=== PATIENT | female | born 1955 | race Caucasian/White ===

== ENCOUNTER → 2016-07-19 | Outpatient (CLI) | payer BC, MEDICARE ==
--- NOTE | 2016-07-19 11:01 | MM ---
Reason for exam: clinical finding. Last mammogram was performed 3 years and 3 months ago. History: Patient is postmenopausal and has history of other cancer at age 57. Family history of breast cancer in grandmother. Benign excisional biopsy of the right breast. Indicated problem(s): non-bloody discharge in the right breast. Physical Findings: Nurse did not find any significant physical abnormalities on exam. MG 3D Diag Mammo W/Cad PRITI Bilateral CC and MLO view(s) were taken. ML and spot compression MLO view(s) were taken of the right breast. Prior study comparison: April 08, 2013, bilateral digital screening mammo w/CAD. The breast tissue is heterogeneously dense. This may lower the sensitivity of mammography. Asymmetric density subareolar right breast on MLO does not persist on additional views. No significant new findings when compared with previous films. These results were verbally communicated with the patient and result sheet given to the patient on 07/19/16. ASSESSMENT: Incomplete: need additional imaging evaluation, BI-RAD 0 RECOMMENDATION: Ultrasound of the right breast. (subareolar)
--- NOTE | 2016-07-19 11:03 | USB ---
Reason for exam: additional evaluation requested from abnormal screening. History: Patient is postmenopausal and has history of other cancer at age 57. Family history of breast cancer in grandmother. Benign excisional biopsy of the right breast. US Breast Limited RT Right breast ultrasound s nadine of the subareolar region demonstrates a 0.46 x 0.24 x 0.52cm hypoechoic lesion at 10 o'clock, suspect a mildly complicated cyst. Can be reassessed in 6 months. These results were verbally communicated with the patient and result sheet given to the patient on 07/19/16. ASSESSMENT: Probably benign, BI-RAD 3 RECOMMENDATION: Ultrasound of the right breast in 6 months. (targeted 10 o'clock) MTDD
--- NOTE | 2016-07-19 14:47 | US ---
EXAMINATION TYPE: US pelvis complete transvag DATE OF EXAM: 07/19/2016 11:48 AM COMPARISON: NONE CLINICAL HISTORY: 61-year-old female with right pelvic pain Date of LMP: 2002 TECHNIQUE: Multiple transabdominal sonographic images of the pelvis were obtained. Transvaginal scann ing was medically necessary to better evaluate the anatomy. FINDINGS: Uterus: Anteverted measuring 8.0 x 3.8 x 5.4cm. Within the anterior left uterine body, there is a 2. 4 x 2.6 x 2.5 cm rounded heterogeneous structure of uncertain etiology, possible focal fibroid. Endometrial Stripe: 0.9cm, thickened for a postmenopausal female. Small amount of fluid is seen along the uterine cavity. Right Ovary: unable to visualize Left Ovary: unable to visualize No evident adnexal abnormality or cul-de-sac free fluid. IMPRESSION: 1. Abnormal thickening of the endometrium for a postmenopausal female along with some fluid in the ut erine cavity. Findings could represent endometrial polyp or carcinoma. Further clinical workup as ind icated. 2. A 2.6 cm rounded heterogeneous structure along the left anterior uterine body could represent a fo zayra fibroid. If further imaging evaluation is desired, consider female pelvic MRI. 3. Unable to visualize either ovary.
== END | disposition home or self-care (01) ==
LOC: RADMAMWWP 09:05
PROVIDERS: ATTEND Family Medicine
DX: R93.8 Abnormal findings on diagnostic imaging of other specified body structures (principal); R92.2 Inconclusive mammogram; R10.2 Pelvic and perineal pain; N64.52 Nipple discharge; R92.8 Other abnormal and inconclusive findings on diagnostic imaging of breast
CPT/HCPCS: 76856; 76830; 76642; G0204; G0279

== ENCOUNTER → 2020-11-15 | Outpatient (CLI) | payer MEDICARE ==
--- NOTE | 2020-11-15 13:14 | MM ---
Reason for exam: additional evaluation requested from prior study. Last mammogram was performed 4 years and 4 months ago. History: Patient is postmenopausal and has history of other cancer at age 57. Family history of breast cancer in grandmother. Benign excisional biopsy of the right breast. Took hormonal contraceptives for 1 year beginning at age 21. Physical Findings: Nurse did not find any significant physical abnormalities on exam. MG 3D Diag Mammo W/Cad PRITI Bilateral CC and MLO view(s) were taken. Prior study comparison: July 19, 2016, bilateral MG 3d diag mammo w/cad PRITI. April 08, 2013, bilateral digital screening mammo w/CAD. The breast tissue is heterogeneously dense. This may lower the sensitivity of mammography. Finding #1: There is a 12 mm oval mass in the upper outer quadrant of the right breast. Finding #2: There are typically benign calcifications in both breasts. These results were verbally communicated with the patient and result sheet given to the patient on 11/15/20. ASSESSMENT: Incomplete: need additional imaging evaluation, BI-RAD 0 RECOMMENDATION: Ultrasound of both breasts.
--- NOTE | 2020-11-15 13:17 | USB ---
Reason for exam: additional evaluation requested from abnormal screening. History: Patient is postmenopausal and has history of other cancer at age 57. Family history of breast cancer in grandmother. Benign excisional biopsy of the right breast. Took hormonal contraceptives for 1 year beginning at age 21. US Breast BILAT Technologist: Sade Bonds Right complete breast ultrasound includes all four quadrants, the retroareolar region and axilla. Finding demonstrates a 0.7 x 0.8 x 0.5cm oval, cystic cluster with debris at 12 o'clock. Left complete breast ultrasound includes all four quadrants, the retroareolar region and axilla. Finding demonstrates a 0.3 x 0.3 x 0.3cm cystic lesion at 6 o'clock and a 0.4 x 0.4 x 0.3cm cystic lesion at 1 o'clock. These results were verbally communicated with the patient and result sheet given to the patient on 11/15/20. ASSESSMENT: Suspicious, BI-RAD 4 RECOMMENDATION: Surgical consultation and ultrasound core biopsy of the right breast. Called Dr. Mejia's office with mammographic findings and has scheduled an appointment for the patient for 11/17/20 at 11:[address] Nathan. Biopsy scheduled for 11/30/20 at 1:00. PRELIMINARY REPORT CALLED AND FAXED TO DR. NATHAN ON 11/15/20.
== END | disposition home or self-care (01) ==
LOC: RADMAMWWP 10:43
PROVIDERS: ATTEND Family Medicine
DX: R92.1 Mammographic calcification found on diagnostic imaging of breast (principal); N63.11 Unspecified lump in the right breast, upper outer quadrant; N60.01 Solitary cyst of right breast; N60.02 Solitary cyst of left breast; Z78.0 Asymptomatic menopausal state; Z80.3 Family history of malignant neoplasm of breast
CPT/HCPCS: 77066; 76641; G0279; 77062

== ENCOUNTER → 2020-11-17 | Outpatient (CLI) | payer MEDICARE ==
[2020-11-17 11:03] VITALS: BP 162/95; PULSE 89; RESP 18; TEMP 97.5
--- NOTE | 2020-11-17 11:42 | P.GSHP ---
History of Present Illness H&P Date: 11/17/20 Chief Complaint: Radiographic abnormality right breast Fawn is a 65 year old white female seen in consultation for Dr. Mejia regarding an ultrasound abnormality in the right breast. She underwent a bilateral mammogram on 11-15-20 after which bilateral ultrasound was recommended. On mammogram a 12 mm oval mass was noted in the upper outer quadrant of the right breast. On ultrasound the patient was noted to have: Right breast: 0.7 x 0.8 cm the cystic cluster at 12:00 Left breast: 2 cystic lesions one at 6:00 and one at 1:00. The films were reviewed with Dr. Armijo from radiology and it was recommended that a right breast ultrasound core biopsy be performed. Patient had not had a mammogram for approximately 4 years. She does not feel any lumps masses or nodules of concern in either breast. She does complain of bilateral green nipple discharge. She has been having the discharge for approximately 6 months. She was told she had an infection and she has been on an antibiotic with respect to this. She has been on ciprofloxin for 10 days. The discharge is spontaneous. She has never noticed any blood in the discharge. She has not had any fever or chills. She was complaining of some intermittent sharp discomfort in the left breast in the upper outer quadrant area. The pain is several times a week. It last for several minutes when it comes. It spreads to the anterior portion of the breast. She has had a duct exploration of the right breast in the remote past. This was related to nipple discharge. This discharge stopped at that time but has now started again. She also had 2 lumps removed under her right arm which were also benign. She has not had any surgery on the left breast. Caffiene: 6 pots of coffee per day/ decreased now to 2-3 cups per day Nicotine:stopped 2 1/2 years ago, used to smoke 2 1/2 PPD, she is not exposed to second hand smoke chocolate: occasional hormones: none BCP: 1 year 40 years ago Family history: Paternal grandmother: Breast cancer brother: Brain cancer sister: colon cancer History: Menarche: 15 G7 6 children; 2 miscarriages; 1 set of twins; age at first : 21, breast fed: yes menopause: 45 BCP: 1 year, hormones: estrogen: 1 year Surgical History: Colon resection for mass this was not cancer, she had a second procedure the second day but is not certain exactly what was done; [place] laproscopic evaluation for endometriosis appendectomy gallbladder bilateral feet; RSD after shopping cart broke on her legs arm torn rotator cuff Spinal stimulator tonsillectomy Medical history: RSD (regional sympathetic dystrophy) HTN [place] chest pain/angina COPD Social History: nicotine: stopped 2 1/2 years ago alcohol: none drugs: none - Constitutional Constitutional: Denies chills, Denies fever - EENT Comment: needs new glasses Eyes: denies blurred vision, denies pain Ears: bilateral: decreased hearing (hearing aids) Ears, nose, mouth and throat: Denies headache, Denies sore throat - Breasts Breasts: bilateral: as per HPI - Cardiovascular Comment: [place] 2012; stints 1 Cardiovascular: Denies chest pain, Denies shortness of breath - Respiratory Comment: former smoker - Gastrointestinal Comment: abdominal bloating and pain/diarrhea Gastrointestinal: Denies abdominal pain, Denies diarrhea, Denies nausea, Denies vomiting - Genitourinary (Female) Genitourinary: Denies dysuria, Denies hematuria - Menstruation Menstruation: Reports postmenopausal - Musculoskeletal Comment: RSD - Integumentary Comment: vaginal itch Integumentary: Denies pruritus, Denies rash - Neurological Comment: RSD - Psychiatric Psychiatric: Reports anxiety, Reports depression - Endocrine Endocrine: Reports weight change - Hematologic/Lymphatic Comment: none - Allergic/Immunologic Allergic/Immunologic: Reports seasonal allergies Past Medical History Past Medical History: Chest Pain / Angina, Hyperlipidemia, Hypertension, Myocardial Infarction ([place]) Additional Past Medical History / Comment(s): RSD, RAYNAUDS Last Myocardial Infarction Date:: 08/2012 History of Any Multi-Drug Resistant Organisms: None Reported Past Surgical History: Appendectomy, Bowel Resection, Breast Surgery, Heart Catheterization With Stent, Orthopedic Surgery, Tonsillectomy, Tubal Ligation Additional Past Surgical History / Comment(s): spinal stimulator Past Anesthesia/Blood Transfusion Reactions: No Reported Reaction Date of Last Stent Placement:: 08/2012 Past Psychological History: Anxiety, Depression Past Alcohol Use History: Rare Past Drug Use History: None Reported - Past Family History Mother Family Medical History: Myocardial Infarction ([place]) Father Family Medical History: Myocardial Infarction ([place]) Sister(s) Family Medical History: Myocardial Infarction ([place]) Additional Family Medical History / Comment(s): sister from [place] Medications and Allergies Home Medications Medication Instructions Recorded Confirmed Type FLUoxetine HCL [PROzac] 20 mg PO BID 05/09/14 12/19/15 History QUEtiapine [SEROquel] 100 mg PO HS 05/09/14 12/19/15 History diazePAM [Valium] 10 mg PO TID 05/09/14 12/19/15 History Amitriptyline HCl [Elavil] 50 mg PO HS 05/10/14 12/19/15 History Gabapentin [Neurontin] 300 mg PO TID 05/10/14 12/19/15 History Nitroglycerin Sl Tabs [Nitrostat] 0.4 mg SUBLINGUAL Q5M PRN 05/10/14 12/19/15 History rOPINIRole HCL [Requip] 1 mg PO HS 05/10/14 12/19/15 History Ergocalciferol [Vitamin D2] 50,000 unit PO FR 09/17/15 12/19/15 History Montelukast [Singulair] 10 mg PO DAILY 09/17/15 12/19/15 History Aspirin EC [Ecotrin] 325 mg PO DAILY 12/19/15 12/19/15 History Atorvastatin [Lipitor] 40 mg PO HS 12/19/15 12/19/15 History Fluticasone/Salmeterol [Advair 1 puff INHALATION RT-BID 12/19/15 12/19/15 History 250-50 Diskus] Metoprolol Succinate [Toprol XL] 200 mg PO DAILY 12/19/15 12/19/15 History Omeprazole 20 mg PO DAILY 12/19/15 12/19/15 History cloNIDine HCL [Catapres] 0.2 mg PO DAILY 12/19/15 12/19/15 History predniSONE [Deltasone] 20 mg PO BID #10 tab 12/19/15 Rx Allergies Allergy/AdvReac Type Severity Reaction Status Date / Time propranolol HCl Allergy [facility]/Hives [facility] [facility] - Exam BMI 28 - General no distress - Eyes normal ocular movement - ENT normal pinna, normal nares - Neck no masses, trachea midline - Respiratory normal expansion, normal respiratory effort, clear to auscultation - Cardiovascular Rhythm: regular Heart Sounds: normal: S1, S2 - Abdomen Abdomen: soft, non tender, no guarding, no rigid, no rebound - Integumentary normal turgor - Neurologic no disoriented, no combative - Musculoskeletal normal gait - Psychiatric oriented to time, oriented to place, memory intact Breast exam: BRA: 36C inspection: grade 3 ptosis bilateral palpation: right breast: Multi-positional exam fibrocystic changes, no dominant masses or nodules of concern, nipple discharge green in nature guaiac negative Right axilla: No adenopathy of concern Left breast: Multi-positional exam fibrocystic changes, no dominant masses or nodules of concern, nipple discharge, guaiac positive Left axilla: No adenopathy of concern Results Radiographs reviewed with Dr. Armijo from radiology/lesion 12 o'clock position right breast seen on ultrasound for which ultrasound-guided core biopsy recommended Assessment and Plan Assessment: Impression: RSD (regional sympathetic dystrophy) HTN [place] chest pain/angina COPD Bilateral nipple discharge/right guaiac-negative left guaiac positive Ultrasound abnormality right breast 12:00 Fibrocystic breast changes Plan: 1. Ultrasound core biopsy right breast/ than follow up 2. Duct exploration left breast secondary to guaiac positive discharge 3. Patient encouraged to stop all caffeine 4. Patient noted to have stopped smoking no nicotine exposure at this time 5. pre-op clearance with Dr. Mejia in case we need to do a duct exploration Risks and benefits of the ultrasound core biopsy discussed with the patient and her . They understand and wish to proceed. Additionally the patient is noted to have bloody nipple discharge on the left at this time she will have this rechecked at her next visit. Cc: Dr. Dr. Mejia
== END ==
LOC: WWCWWP 10:52
PROVIDERS: ATTEND Surgery
DX: N60.12 Diffuse cystic mastopathy of left breast (principal); N60.11 Diffuse cystic mastopathy of right breast; G90.50 Complex regional pain syndrome I, unspecified; I10 Essential (primary) hypertension; I25.2 Old myocardial infarction; R07.9 Chest pain, unspecified; J44.9 Chronic obstructive pulmonary disease, unspecified; N64.52 Nipple discharge; E78.5 Hyperlipidemia, unspecified; F32.9 Major depressive disorder, single episode, unspecified; F41.9 Anxiety disorder, unspecified; Z79.82 Long term (current) use of aspirin; Z87.891 Personal history of nicotine dependence; Z79.51 Long term (current) use of inhaled steroids; Z79.52 Long term (current) use of systemic steroids; Z79.899 Other long term (current) drug therapy; Z88.8 Allergy status to other drugs, medicaments and biological substances

== ENCOUNTER → 2020-11-24 | Outpatient (CLI) | payer MEDICARE ==
--- NOTE | 2020-11-24 08:24 | US ---
EXAMINATION TYPE: US abdomen complete DATE OF EXAM: 11/24/2020 COMPARISON: NONE CLINICAL HISTORY: R10.9 abdominal pain, R10.2 Pelvic Pain. Right pelvic pain x 5 months, history of c holecystectomy EXAM MEASUREMENTS: Liver Length: 17.7 cm CBD: 0.8 cm Spleen: 12.2 cm Right Kidney: 9.6 x 3.8 x 4.8 cm Left Kidney: 9.0 x 4.9 x 5.0 cm Pancreas: visualized portions wnl, the head and tail is limited by overlying midline bowel gas Liver: measures in upper limits of normal Gallbladder: surgically absent Evidence for sonographic Cruz's sign: no CBD: wnl Spleen: visualized portions wnl, limited by overlying bowel gas Right Kidney: wnl Left Kidney: wnl Upper IVC: wnl Abd Aorta: wnl IMPRESSION: 1. Status post cholecystectomy. Common duct is 8 mm, within normal limits for postcholecystectomy pat ient. 2. No hydronephrosis or shadowing renal calculi. 3. The pancreas is not entirely visualized due to overlying bowel gas obscuring the head and tail.
--- NOTE | 2020-11-24 08:47 | US ---
EXAMINATION TYPE: US pelvic complete DATE OF EXAM: 11/24/2020 COMPARISON: US 2017 07/19/2016 CLINICAL HISTORY: R10.9 abdominal pain, R10.2 Pelvic Pain. Right pelvic pain x 5 months, post menopau alexandre, 6, para 4, miscarriage 2 TECHNIQUE: . Transabdominal sonographic images of the pelvis were acquired. Transvaginal sonographi c images were medically necessary to better assess the following anatomy: ovaries and endometrium Date of LMP: 2002 EXAM MEASUREMENTS: Uterus: 6.8 x 4.1 x 4.7 cm Endometrial Stripe: 0.5 cm 1. Uterus: heterogeneous with 2.7 x 2.3 x 2.7cm hypoechoic lesion within the left uterus seen sugge stive of a leiomyoma 2. Endometrium: fluid within endo, 0.6cm hyperechoic area seen within endo 3. Right Ovary: not seen 4. Left Ovary: not seen 5. Bilateral Adnexa: wnl 6. Posterior cul-de-sac: wnl IMPRESSION: 1. In this postmenopausal female, the endometrial stripe measures up to 5 mm, which is mildly thicken ed for a postmenopausal female. Differential diagnosis includes endometrial cancer, endometrial hyper plasia, or endometrial polyp. There is a 6.4 mm hyperechoic area seen within the endometrium. Gynecol ogic evaluation is recommended. 2. The ovaries are not visualized which may be due to atrophy and postmenopausal state. 3. 2.7 cm hypoechoic lesion within the left uterus is most suggestive of a leiomyoma.
== END | disposition home or self-care (01) ==
LOC: RADUSWWP 06:55
PROVIDERS: ATTEND Family Medicine
DX: R93.89 Abnormal findings on diagnostic imaging of other specified body structures (principal); Z90.49 Acquired absence of other specified parts of digestive tract; Z78.0 Asymptomatic menopausal state
CPT/HCPCS: 76700; 76830; 76856

== ENCOUNTER → 2020-11-30 | Day surgery (SDC) | payer MEDICARE ==
[2020-11-30 12:02] VITALS: BP 143/82; PULSE 77; RESP 16; TEMP 98.6
--- NOTE | 2020-11-30 14:44 | USB ---
Study: US discontinued breast bx RT History: 65-year-old female who is here today for a right breast biopsy. Comparison: 11/15/2020 Findings: Directed sonography of the right breast was performed. At the right breast at 12:00, zone A there is a complex cystic structure with septations or area of fibrocystic change measuring 0.8 x 0.7 x 0.4 cm . This is probably benign. The biopsy today was canceled for this probably benign finding. A 6 month follow-up right diagnostic mammogram and breast ultrasound are recommended. Impression: Right breast: Complex cystic structure or area of fibrocystic change measuring 8 mm is stable since p rior exam from 11/15/2020. This is probably benign. Ultrasound-guided right breast biopsy was canceled . A 6 month follow-up right diagnostic mammogram and ultrasound are recommended. BI-RADS 3: Probably benign Recommend sonographic study of the right breast in 6 months.
== END ==
LOC: RADUSWWP 11:52
PROVIDERS: ATTEND Surgery
DX: R92.8 Other abnormal and inconclusive findings on diagnostic imaging of breast (principal); Z88.8 Allergy status to other drugs, medicaments and biological substances

== ENCOUNTER → 2020-12-08 | Outpatient (CLI) | payer MEDICARE ==
[2020-12-08 08:56] VITALS: BP 143/84; PULSE 90; RESP 16; TEMP 97.7
--- NOTE | 2020-12-08 09:20 | P.PN ---
Subjective Progress Note Date: 12/08/20 Principal diagnosis: Canceled ultrasound core biopsy right breast/nipple discharge left decreased and guaiac-negative at today's evaluation Fawn is a 65 year old white female seen in consultation for Dr. Mejia regarding an ultrasound abnormality in the right breast. She underwent a bilateral mammogram on 11-15-20 after which bilateral ultrasound was recommended. On mammogram a 12 mm oval mass was noted in the upper outer quadrant of the right breast. On ultrasound the patient was noted to have: Right breast: 0.7 x 0.8 cm the cystic cluster at 12:00 Left breast: 2 cystic lesions one at 6:00 and one at 1:00. The films were reviewed with Dr. Armijo from radiology and it was recommended that a right breast ultrasound core biopsy be performed. Patient had not had a mammogram for approximately 4 years. She does not feel any lumps masses or nodules of concern in either breast. She does complain of bilateral green nipple discharge. She has been having the discharge for approximately 6 months. She was told she had an infection and she has been on an antibiotic with respect to this. She has been on ciprofloxin for 10 days. The discharge is spontaneous. She has never noticed any blood in the discharge. She has not had any fever or chills. She was complaining of some intermittent sharp discomfort in the left breast in the upper outer quadrant area. The pain is several times a week. It last for several minutes when it comes. It spreads to the anterior portion of the breast. She has had a duct exploration of the right breast in the remote past. This was related to nipple discharge. This discharge stopped at that time but has now started again. She also had 2 lumps removed under her right arm which were also benign. She has not had any surgery on the left breast. She is not having any right nipple discharge. The discharge at this time is from the left breast, and it was guaiac positive on her last examination. She had an attempt at an ultrasound-guided biopsy of the right breast on . The lesion seen was felt to be benign and the procedure was canceled by Dr. Lopez. It was recommended that she have repeat right breast ultrasound in May. Left breast discharge has been happening for about 6 months, it is spontaneous in nature. It was green in nature, in her bra it was noted to have several colors, no sarabjit blood. It was occurring from multiple ducts. On today's evaluation it is guaiac negative. The patient is not having any right nipple discharge at this time. Caffiene: 6 pots of coffee per day/ decreased now to 2-3 cups per day Nicotine:stopped 2 1/2 years ago, used to smoke 2 1/2 PPD, she is not exposed to second hand smoke chocolate: occasional hormones: none BCP: 1 year 40 years ago Family history: Paternal grandmother: Breast cancer brother: Brain cancer sister: colon cancer History: Menarche: 15 G7 6 children; 2 miscarriages; 1 set of twins; age at first : 21, breast fed: yes menopause: 45 BCP: 1 year, hormones: estrogen: 1 year Surgical History: Colon resection for mass this was not cancer, she had a second procedure the second day but is not certain exactly what was done; [place] laproscopic evaluation for endometriosis appendectomy gallbladder bilateral feet; RSD after shopping cart broke on her legs arm torn rotator cuff Spinal stimulator tonsillectomy Medical history: RSD (regional sympathetic dystrophy) HTN [place] chest pain/angina COPD Social History: nicotine: stopped 2 1/2 years ago alcohol: none drugs: none - Constitutional Constitutional: Denies chills, Denies fever - EENT Comment: needs new glasses Eyes: denies blurred vision, denies pain Ears: bilateral: decreased hearing (hearing aids) Ears, nose, mouth and throat: Denies headache, Denies sore throat - Breasts Breasts: bilateral: as per HPI - Cardiovascular Comment: [place] 2012; stints 1 Cardiovascular: Denies chest pain, Denies shortness of breath - Respiratory Comment: former smoker - Gastrointestinal Comment: abdominal bloating and pain/diarrhea Gastrointestinal: Denies abdominal pain, Denies diarrhea, Denies nausea, Denies vomiting - Genitourinary (Female) Genitourinary: Denies dysuria, Denies hematuria - Menstruation Menstruation: Reports postmenopausal - Musculoskeletal Comment: RSD - Integumentary Comment: vaginal itch Integumentary: Denies pruritus, Denies rash - Neurological Comment: RSD - Psychiatric Psychiatric: Reports anxiety, Reports depression - Endocrine Endocrine: Reports weight change - Hematologic/Lymphatic Comment: none - Allergic/Immunologic Allergic/Immunologic: Reports seasonal allergies Objective - Vital Signs Vital signs: Vital Signs Temp 97.7 F 12/08/20 08:54 Pulse 90 12/08/20 08:54 Resp 16 12/08/20 08:54 BP 143/84 12/08/20 08:54 Pulse Ox 98 12/08/20 08:54 Intake & Output 12/07/20 12/08/20 12/08/20 18:59 06:59 18:59 Weight 75.75 kg - Additional findings Additional findings: Today's evaluation was limited to the left breast. Examination reveals green colored discharge from multiple ducts at the nipple. These are guaiac negative on today's examination. Prior no dominant masses or nodules of concern had been noted in the breast. No left axillary adenopathy of concern had been noted. Assessment and Plan Assessment: Impression: 1. Fibrocystic breast disease bilateral 2. Patient has decreased her caffeine intake 3. Discharge has stopped from the right nipple complex, appears to still be occurring on the left but appears to be consistent with fibrocystic changes is green in nature and coming from multiple ducts no radiographic findings were noted to describe this and nothing on physical exam it is guaiac negative on today's evaluation Plan: 1. After discussion with the patient and her we are going to do conservative surveillance, if she notes any red blood she is going to call us immediately otherwise I'll see her again in 1 month 2. Repeat right breast ultrasound in 6 months with physician exam at that time Plan: Dr. Mejia Stable chronic illness: The cystic breast disease, left nipple discharge [place] ultrasound [place] [id number] Ordering of ultrasound in 6 months Patient is going to have close surveillance regarding the nipple discharge and if this becomes bloody or she is at all concerned we will see her sooner.
== END ==
LOC: WWCWWP 08:46
PROVIDERS: ATTEND Surgery
DX: N60.11 Diffuse cystic mastopathy of right breast (principal); N60.12 Diffuse cystic mastopathy of left breast; I10 Essential (primary) hypertension; J44.9 Chronic obstructive pulmonary disease, unspecified; I25.2 Old myocardial infarction; Z87.891 Personal history of nicotine dependence; Z88.8 Allergy status to other drugs, medicaments and biological substances

== ENCOUNTER → 2021-01-06 | Outpatient (CLI) | payer MEDICARE ==
[2021-01-06 15:49] VITALS: BP 151/84; PULSE 81; RESP 18; TEMP 98
--- NOTE | 2021-01-06 16:15 | P.PN ---
Subjective Progress Note Date: 01/06/21 Principal diagnosis: Left breast pain/nipple discharge Canceled ultrasound core biopsy right breast/nipple discharge left decreased and guaiac-negative at today's evaluation Fawn is a 65 year old white female seen in consultation for Dr. Mejia regarding an ultrasound abnormality in the right breast. She underwent a bilateral mammogram on 11-15-20 after which bilateral ultrasound was recommended. On mammogram a 12 mm oval mass was noted in the upper outer qu adrant of the right breast. On ultrasound the patient was noted to have: Right breast: 0.7 x 0.8 cm the cystic cluster at 12:00 Left breast: 2 cystic lesions one at 6:00 and one at 1:00. The films were reviewed with Dr. Armijo from radiology and it was recommended that a right breast ultrasound core biopsy be performed. Patient had not had a mammogram for approximately 4 years. She does not feel any lumps masses or nodules of concern in either breast. She does complain of bilateral green nipple discharge. She has been having the discharge for approximately 6 months. She was told she had an infection and she has been on an antibiotic with respect to this. She has been on ciprofloxin for 10 days. The discharge is spontaneous. She has never noticed any blood in the discharge. She has not had any fever or chills. She was complaining of some intermittent sharp discomfort in the left breast in the upper outer quadrant area. The pain is several times a week. It last for several minutes when it comes. It spreads to the anterior portion of the breast. She has had a duct exploration of the right breast in the remote past. This was related to nipple discharge. This discharge stopped at that time but has now started again. She also had 2 lumps removed under her right arm which were also benign. She has not had any surgery on the left breast. She is not having any right nipple discharge. The discharge at this time is from the left breast, and it was guaiac positive on her last examination. She had an attempt at an ultrasound-guided biopsy of the right breast on . The lesion seen was felt to be benign and the procedure was canceled by Dr. Lopez. It was recommended that she have repeat right breast ultrasound in May. Left breast discharge has been happening for about 6 months, it is spontaneous in nature. It was green in nature, in her bra it was noted to have several colors, no sarabjit blood. It was occurring from multiple ducts. On today's evaluation it is guaiac negative. The patient is not having any right nipple discharge at this time. The left nipple discharge is spontaneous and every night she sees something on her bra. She also complains of pain in the lateral upper outer quadrant of the left breast. This originates under the axilla and spreads into the breast. It occurs at least once a day. It is worse with any pressure. On a scale of 1-10 it is a 4. She has not noted any new lumps masses or nodules in either breast. Caffiene: 6 pots of coffee per day/ decreased now to 2-3 cups per day Nicotine:stopped 2 1/2 years ago, used to smoke 2 1/2 PPD, she is not exposed to second hand smoke chocolate: occasional hormones: none BCP: 1 year 40 years ago Family history: Paternal grandmother: Breast cancer brother: Brain cancer sister: colon cancer History: Menarche: 15 G7 6 children; 2 miscarriages; 1 set of twins; age at first : 21, breast fed: yes menopause: 45 BCP: 1 year, hormones: estrogen: 1 year Surgical History: Colon resection for mass this was not cancer, she had a second procedure the second day but is not certain exactly what was done; [place] laproscopic evaluation for endometriosis appendectomy gallbladder bilateral feet; RSD after shopping cart broke on her legs arm torn rotator cuff Spinal stimulator tonsillectomy Medical history: RSD (regional sympathetic dystrophy) HTN [place] chest pain/angina COPD Social History: nicotine: stopped 2 1/2 years ago alcohol: none drugs: none - Constitutional Constitutional: Denies chills, Denies fever - EENT Comment: needs new glasses Eyes: denies blurred vision, denies pain Ears: bilateral: decreased hearing (hearing aids) Ears, nose, mouth and throat: Denies headache, Denies sore throat - Breasts Breasts: bilateral: as per HPI - Cardiovascular Comment: [place] 2013; stints 1 Cardiovascular: Denies chest pain, Denies shortness of breath - Respiratory Comment: former smoker - Gastrointestinal Comment: abdominal bloating and pain/diarrhea Gastrointestinal: Denies abdominal pain, Denies diarrhea, Denies nausea, Denies vomiting - Genitourinary (Female) Genitourinary: Denies dysuria, Denies hematuria - Menstruation Menstruation: Reports postmenopausal - Musculoskeletal Comment: RSD - Integumentary Comment: vaginal itch Integumentary: Denies pruritus, Denies rash - Neurological Comment: RSD - Psychiatric Psychiatric: Reports anxiety, Reports depression - Endocrine Endocrine: Reports weight change - Hematologic/Lymphatic Comment: none - Allergic/Immunologic Allergic/Immunologic: Reports seasonal allergies Objective - Vital Signs Vital signs: Vital Signs Temp 98.0 F 01/06/21 15:47 Pulse 81 01/06/21 15:47 Resp 18 01/06/21 15:47 BP 151/84 01/06/21 15:47 Pulse Ox 97 01/06/21 15:47 Intake & Output 01/05/21 01/06/21 01/06/21 18:59 06:59 18:59 Weight 72.575 kg - Exam BMI 25.8 - Constitutional General appearance: Present: average body habitus - EENT Eyes: Present: EOMI ENT: Present: hearing grossly normal - Neck Neck: Present: normal ROM - Respiratory Respiratory: bilateral: CTA - Cardiovascular Rhythm: regular Heart sounds: normal: S1, S2 - Gastrointestinal General gastrointestinal: Present: soft - Integumentary Integumentary: Present: normal turgor - Musculoskeletal Musculoskeletal: Present: gait normal - Psychiatric Psychiatric: Present: A&O x's 3, appropriate affect, intact judgment & insight - Additional findings Additional findings: Breast exam: BRA: 36C Inspection: Bilateral grade 2 ptosis Palpation: Right breast: Multiple positional exam fibrocystic changes, no dominant masses or nodules of concern Right axilla: No adenopathy of concern Left breast: Multiple positional exam no dominant masses or nodules of concern in the breast, examination of the axilla reveals an area of point tenderness in the axilla was some slight nodularity over this Left axilla: Area of point tenderness with some nodularity does not appear to be a lymph node appears to be more consistent with axillary breast tissue The patient is able to elicit nipple discharge on the left and this is tested and is guaiac-negative Assessment and Plan Assessment: Impression: RSD (regional sympathetic dystrophy) pain stimulator HTN [place] chest pain/angina COPD left breast axillary pain fibrocystic breast pain nothing at this time to warrant biopsy cannot do MRI after talking with patient because of pain stimulator Plan: 1. Ultrasound of trigger point area in the left axilla 2. Question whether this may be related to her regional synthetic dystrophy/ appointment with pain DrAram 3. Nipple discharge is guaiac negative on today's evaluation and only produced with massage of the breast 4. folow up after ultrasound of the axilla 5. Patient again encouraged to stop caffeine intake she has stopped smoking several years ago/ will use [place] oil CC: Dr. Moon
== END ==
LOC: WWCWWP 14:52
PROVIDERS: ATTEND Surgery
DX: N64.4 Mastodynia (principal); G90.50 Complex regional pain syndrome I, unspecified; I10 Essential (primary) hypertension; F17.210 Nicotine dependence, cigarettes, uncomplicated; I25.2 Old myocardial infarction; I20.9 Angina pectoris, unspecified; J44.9 Chronic obstructive pulmonary disease, unspecified; Z88.8 Allergy status to other drugs, medicaments and biological substances; Z79.899 Other long term (current) drug therapy

== ENCOUNTER → 2021-02-13 | Outpatient (CLI) | payer MEDICARE ==
--- NOTE | 2021-02-14 15:03 | USB ---
Reason for exam: clinical finding. History: Patient is postmenopausal and has history of other cancer at age 57. Family history of breast cancer in paternal grandmother at age 56. US discontinued breast bx RT of the right breast, November 30, 2020. Benign excisional biopsy of the right breast. Took hormonal contraceptives for 1 year beginning at age 21. Indicated problem(s): pain in the left breast. Physical Findings: Nurse Summary: Patient complains of intermittent pain left axilla x 3 months, shooting pain into lateral half of breast (nurse TM). US Breast LT Left complete breast ultrasound includes all four quadrants, the retroareolar region and axilla. Finding demonstrates a 4 x 3 x 4mm oval, cystic, stable lesion at 1 o'clock. These results were verbally communicated with the patient and result sheet given to the patient on 02/13/21. ASSESSMENT: Benign, BI-RAD 2 RECOMMENDATION: Routine screening mammogram of both breasts in 9 months. Back on schedule for November 2021. Manage on a clinical basis with regard to pain, nipple discharge.
== END | disposition home or self-care (01) ==
LOC: RADUSWWP 09:03
PROVIDERS: ATTEND Surgery
DX: N64.4 Mastodynia (principal); Z85.3 Personal history of malignant neoplasm of breast

== ENCOUNTER → 2021-03-03 | Outpatient (CLI) | payer MEDICARE ==
[2021-03-03 11:42] VITALS: BP 138/90; PULSE 90; RESP 18; TEMP 97.9
--- NOTE | 2021-03-03 12:14 | P.PN ---
Subjective Progress Note Date: 03/03/21 Principal diagnosis: BMI 25.4 Fawn is a 66-year-old white female who was initially seen related to a questionable ultrasound abnormality in her right breast. An ultrasound core biopsy was scheduled but at the time of the procedure was canceled. The patient at that time was complaining of some intermittent sharp discomfort in her left breast in the upper outer quadrant area. The patient states that she has pain which occurs several times a day. It is only in the left breast but it seems to be in the upper outer quadrant region. She had been drinking up proximally 6 pots of coffee per day but is now decreased to several cups per day. Her last bilateral mammogram was on following that she had bilateral ultrasound performed. Ultrasound on the right breast lead to recommendation for biopsy which was canceled ultrasound on the left breast revealed a cystic lesion at 6:00 and the cystic lesion at 1:00. The patient most recently has had a repeat left breast ultrasound done on 8920. This was felt to be benign BIRADS 2. This revealed a 4 x 3 mm oval cystic stable lesion at 1:00. She has not yet had a right breast ultrasound repeated after her discontinued biopsy which was on . Caffiene: 6 pots of coffee per day/ decreased now to 2-3 cups per day Nicotine:stopped about 3 years ago, used to smoke 2 1/2 PPD, she is not exposed to second hand smoke chocolate: occasional hormones: none BCP: 1 year 40 years ago Family history: Paternal grandmother: Breast cancer brother: Brain cancer sister: colon cancer History: Menarche: 15 G7 6 children; 2 miscarriages; 1 set of twins; age at first : 21, breast fed: yes menopause: 45 BCP: 1 year, hormones: estrogen: 1 year Surgical History: Colon resection for mass this was not cancer, she had a second procedure the second day but is not certain exactly what was done; [place] laproscopic evaluation for endometriosis appendectomy gallbladder bilateral feet; RSD after shopping cart broke on her legs arm torn rotator cuff Spinal stimulator tonsillectomy Medical history: RSD (regional sympathetic dystrophy) was recently increased on neurotin HTN [place] chest pain/angina COPD Social History: nicotine: stopped 2 1/2 years ago alcohol: none drugs: none - Constitutional Constitutional: Denies chills, Denies fever - EENT Comment: needs new glasses Eyes: denies blurred vision, denies pain Ears: bilateral: decreased hearing (hearing aids) Ears, nose, mouth and throat: Denies headache, Denies sore throat - Breasts Breasts: bilateral: as per HPI - Cardiovascular Comment: [place] 2012; stints 1 Cardiovascular: Denies chest pain, Denies shortness of breath - Respiratory Comment: former smoker - Gastrointestinal Comment: abdominal bloating and pain/diarrhea Gastrointestinal: Denies abdominal pain, Denies diarrhea, Denies nausea, Denies vomiting - Genitourinary (Female) Genitourinary: Denies dysuria, Denies hematuria - Menstruation Menstruation: Reports postmenopausal - Musculoskeletal Comment: RSD - Integumentary Comment: vaginal itch Integumentary: Denies pruritus, Denies rash - Neurological Comment: RSD - Psychiatric Psychiatric: Reports anxiety, Reports depression - Endocrine Endocrine: Reports weight change - Hematologic/Lymphatic Comment: none - Allergic/Immunologic Allergic/Immunologic: Reports seasonal allergies Objective - Vital Signs Vital signs: Vital Signs Temp 97.9 F 03/03/21 11:40 Pulse 90 03/03/21 11:40 Resp 18 03/03/21 11:40 BP 138/90 03/03/21 11:40 Pulse Ox 99 03/03/21 11:40 Intake & Output 03/02/21 03/03/21 03/03/21 18:59 06:59 18:59 Weight 72.575 kg - Constitutional Constitutional Comment(s): chronic breast pain - EENT Eyes: Present: EOMI ENT: Present: hearing grossly normal - Neck Neck: Present: normal ROM - Respiratory Respiratory: bilateral: CTA - Cardiovascular Heart sounds: normal: S1, S2 - Integumentary Integumentary: Present: normal turgor - Musculoskeletal Musculoskeletal Comment(s): drop foot - Psychiatric Psychiatric: Present: A&O x's 3, appropriate affect, intact judgment & insight - Additional findings Additional findings: breast exam: BRA: 36C inspection: Bilateral grade 2 ptosis Palpation: Right breast: Multiple positional exam fibrocystic changes no dominant masses or nodules of concern Right axilla: No adenopathy of concern Left breast: Multiple positional exam fibrocystic changes, no dominant masses or nodules of concern Left axilla: No adenopathy, however point tenderness at [place] to be present on the chest wall laterally in the axilla 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 Fibrocystic breast changes 2. Patient has modified lifestyle she is drinking minimal caffeine at this time have recommended that she stop all caffeine if possible 3. [place] oil 4. Patient's pain stimulator has stopped working and she is going to have those batteries changed, suspect patient may be related to RSD/chest wall/frozen shoulder left 5. Nothing in the breast which were more interventional biopsy at this time Plan: 1. Bilateral mammogram in 9 months with position exam at that time 2. Patient is going to have batteries change in her RSD pain stimulator device 3. follow with primary care regarding shoulder limited motion CC: Dr. Moon
== END ==
LOC: WWCWWP 11:25
PROVIDERS: ATTEND Surgery
DX: N60.12 Diffuse cystic mastopathy of left breast (principal); F15.90 Other stimulant use, unspecified, uncomplicated; L23.7 Allergic contact dermatitis due to plants, except food; I10 Essential (primary) hypertension; I25.2 Old myocardial infarction; J44.9 Chronic obstructive pulmonary disease, unspecified; Z79.899 Other long term (current) drug therapy; Z87.891 Personal history of nicotine dependence; Z88.8 Allergy status to other drugs, medicaments and biological substances

== ENCOUNTER 2021-08-06 17:02 | Observation (INO) | payer MEDICARE ==
[2021-08-06] MEDS ORDERED: SODIUM CHLORIDE 0.9% 1,000 ML IV STA (17:32)
[2021-08-06] MEDS ORDERED: ONDANSETRON 4 MG/2 ML VIAL IVP STA (17:32)
[2021-08-06] MEDS ORDERED: FAMOTIDINE 20 MG/2 ML VIAL IV STA (17:34)
--- NOTE | 2021-08-06 17:40 | ED ---
Nausea/Vomiting/Diarrhea HPI - General Chief complaint: Nausea/Vomiting/Diarrhea Stated complaint: N/V/D Time Seen by Provider: 08/06/21 17:20 Source: patient Mode of arrival: wheelchair Limitations: no limitations - History of Present Illness Initial comments: 66 year-old female patient presents to the emergency department for evaluation of vomiting and diarrhea. States symptoms started last night and have not improved. Unable to keep down food or fluids. Denies hematochezia, melena, or hematemesis. She states now she feels dizzy and has fallen multiple times. Denies use of blood thinners. States she did hit her head. Denies headache, blurred vision, or double vision. Denies chest pain or shortness of breath. States she is having pain to the right side of her abdomen. States he has had colon resection in the past and her surgeon is concerned she may have adhesions. She denies fever or chills. She is vaccinated with a booster for COVID. Has n ever had COVID. Patient denies any recent rash, cough, constipation, back pain, numbness, tingling, hematuria, dysuria, urinary urgency, urinary frequency, or any other complaints. - Related Data Home Medications Medication Instructions Recorded Confirmed Amitriptyline HCl [Elavil] 50 mg PO HS 05/10/14 08/06/21 Gabapentin [Neurontin] 300 mg PO TID 05/10/14 08/06/21 Ergocalciferol [Vitamin D2] 50,000 unit PO FR 09/17/15 08/06/21 Montelukast [Singulair] 10 mg PO HS 09/17/15 08/06/21 Omeprazole 20 mg PO DAILY 12/19/15 08/06/21 Diazepam [Valium] 5 mg PO DAILY PRN 11/18/20 08/06/21 Albuterol Inhaler [Ventolin Hfa 2 puff INHALATION RT-Q6H PRN 08/06/21 08/06/21 Inhaler] Budesonide/Glycopyr/Formoterol 1 puff INHALATION RT-DAILY 08/06/21 08/06/21 [Breztri Aerosphere Inhaler] Dicyclomine HCl 10 mg PO ACHS 08/06/21 08/06/21 Fluticasone/Vilanterol [Breo 1 puff INHALATION RT-DAILY 08/06/21 08/06/21 Ellipta 200-25 Mcg Inhaler] Hydrochlorothiazide 12.5mg Tab 12.5 mg PO DAILY 08/06/21 08/06/21 Lisinopril-Hctz 20-25 mg 1 tab PO DAILY 08/06/21 08/06/21 [Zestoretic 20-25] Metoprolol Succinate [Toprol XL] 200 mg PO DAILY 08/06/21 08/06/21 Topiramate [Topamax] 50 mg PO BID 08/06/21 08/06/21 amLODIPine [Norvasc] 5 mg PO DAILY 08/06/21 08/06/21 Allergies Allergy/AdvReac Type Severity Reaction Status Date / Time propranolol HCl Allergy Rash/Hives Verified 08/06/21 17:19 [From Inderal LA] Review of Systems ROS Statement: Those systems with pertinent positive or pertinent negative responses have been documented in the HPI. ROS Other: All systems not noted in ROS Statement are negative. Past Medical History Past Medical History: Chest Pain / Angina, Hyperlipidemia, Hypertension, Myocardial Infarction ([place]) Additional Past Medical History / Comment(s): RSD, RAYNAUDS, restless leg syndrome Last Myocardial Infarction Date:: 08/2012 History of Any Multi-Drug Resistant Organisms: None Reported Past Surgical History: Appendectomy, Bowel Resection, Breast Surgery, Chol ecystectomy, Heart Catheterization With Stent, Orthopedic Surgery, Tonsillectomy, Tubal Ligation Additional Past Surgical History / Comment(s): spinal stimulator Past Anesthesia/Blood Transfusion Reactions: No Reported Reaction Date of Last Stent Placement:: 08/2012 Past Psychological History: No Psychological Hx Reported Smoking Status: Former smoker Past Alcohol Use History: Rare Past Drug Use History: None Reported - Past Family History Mother Family Medical History: Myocardial Infarction ([place]) Father Family Medical History: Myocardial Infarction ([place]) Sister(s) Family Medical History: Myocardial Infarction ([place]) Additional Family Medical History / Comment(s): sister from [place] General Exam Limitations: no limitations General appearance: alert, in no apparent distress, other (This is a well developed, well nourished adult female in no acute distress. ) Head exam: Present: atraumatic, normocephalic, normal inspection Eye exam: Present: normal appearance, PERRL, EOMI. Absent: scleral icterus, conjunctival injection, nystagmus, periorbital swelling ENT exam: Present: normal exam, normal oropharynx, mucous membranes moist Respiratory exam: Present: normal lung sounds bilaterally. Absent: respiratory distress, wheezes, rales, rhonchi, stridor Cardiovascular Exam: Present: normal rhythm, tachycardia, normal heart sounds. Absent: systolic murmur, diastolic murmur, rubs, gallop, clicks GI/Abdominal exam: Present: soft, tenderness (Right sided tenderness.), normal bowel sounds. Absent: distended, guarding, rebound, rigid Neurological exam: Present: alert, oriented X3, CN II-XII intact Psychiatric exam: Present: normal affect, normal mood Skin exam: Present: warm, dry, intact, normal color. Absent: rash Course Vital Signs 08/06/21 08/06/21 08/06/21 17:16 19:00 19:30 Temperature 98.4 F Pulse Rate 111 H 101 H 96 Respiratory 18 20 20 Rate Blood Pressure 87/61 120/68 123/69 O2 Sat by Pulse 98 96 96 Oximetry 08/06/21 08/06/21 20:00 20:30 Temperature Pulse Rate 99 97 Respiratory 20 20 Rate Blood Pressure 129/72 129/71 O2 Sat by Pulse 96 100 Oximetry Medical Decision Making - Medical Decision Making 66-year-old female patient presented to the emergency department today for evaluation of vomiting since last night. Unable to keep down any food or fluids. Labs reviewed and did reveal white blood cell count at 12.4, hemoglobin 16.9, elevated BUN and creatinine 26 and 1.18, lactic 2.4, bili 1.4, urinalysis shows greater than 1.050 specific gravity. She was negative for COVID-19. CT abdomen and pelvis was negative. I a did give patient 2 L of IV fluids. Zofran. She has not vomited since arrival. I did discuss her findings with her. We'll admit for acute dehydration, acute kidney injury. She is agreeable this plan. My attending is Dr. Cao. - Lab Data Result diagrams: 08/06/21 18:00 08/06/21 18:00 Lab Results 08/06/21 08/06/21 08/06/21 Range/Units 18:00 18:00 18:00 WBC 12.4 H (3.8-10.6) k/uL RBC 5.53 H (3.80-5.40) m/uL Hgb 16.9 H (11.4-16.0) gm/dL Hct 51.0 H (34.0-46.0) % MCV 92.2 (80.0-100.0) fL MCH 30.5 (25.0-35.0) pg MCHC 33.1 (31.0-37.0) g/dL RDW 13.7 (11.5-15.5) % Plt Count 252 (150-450) k/uL MPV 7.9 Neutrophils % 93 % Lymphocytes % 2 % Monocytes % 4 % Eosinophils % 1 % Basophils % 1 % Neutrophils # 11.5 H (1.3-7.7) k/uL Lymphocytes # 0.2 L (1.0-4.8) k/uL Monocytes # 0.5 (0-1.0) k/uL Eosinophils # 0.1 (0-0.7) k/uL Basophils # 0.1 (0-0.2) k/uL Sodium 140 (137-145) mmol/L Potassium 4.7 (3.5-5.1) mmol/L Chloride 106 (98-107) mmol/L Carbon Dioxide 19 L (22-30) mmol/L Anion Gap 15 mmol/L BUN 26 H (7-17) mg/dL Creatinine 1.18 H (0.52-1.04) mg/dL Est GFR (CKD-EPI)AfAm 57 (>60 ml/min/1.73 sqM) Est GFR (CKD-EPI)NonAf 49 (>60 ml/min/1.73 sqM) Glucose 150 H (74-99) mg/dL Lactic Ac Sepsis Rflx Plasma Lactic Acid Jered (0.7-2.0) mmol/L Calcium 10.4 H (8.4-10.2) mg/dL Total Bilirubin 1.4 H (0.2-1.3) mg/dL AST 34 (14-36) U/L ALT 42 H (4-34) U/L Alkaline Phosphatase 88 (38-126) U/L Troponin I <0.012 (0.000-0.034) ng/mL Total Protein 8.9 H (6.3-8.2) g/dL Albumin 5.3 H (3.5-5.0) g/dL Lipase 22 L (23-300) U/L Urine Color Urine Appearance (Clear) Urine pH (5.0-8.0) Ur Specific [place] (1.001-1.035) Urine Protein (Negative) Urine Glucose (UA) (Negative) Urine Ketones (Negative) Urine Blood (Negative) Urine Nitrite (Negative) Urine Bilirubin (Negative) Urine Urobilinogen (<2.0) mg/dL Ur Leukocyte Esterase (Negative) Urine RBC (0-5) /hpf Urine WBC (0-5) /hpf Ur Squamous Epith Cells (0-4) /hpf Hyaline Casts (0-2) /lpf Urine Mucus (None) /hpf Coronavirus (PCR) (Not Detectd) 08/06/21 08/06/21 08/06/21 Range/Units 18:00 18:01 18:36 WBC (3.8-10.6) k/uL RBC (3.80-5.40) m/uL Hgb (11.4-16.0) gm/dL Hct (34.0-46.0) % MCV (80.0-100.0) fL MCH (25.0-35.0) pg MCHC (31.0-37.0) g/dL RDW (11.5-15.5) % Plt Count (150-450) k/uL MPV Neutrophils % % Lymphocytes % % Monocytes % % Eosinophils % % Basophils % % Neutrophils # (1.3-7.7) k/uL Lymphocytes # (1.0-4.8) k/uL Monocytes # (0-1.0) k/uL Eosinophils # (0-0.7) k/uL Basophils # (0-0.2) k/uL Sodium (137-145) mmol/L Potassium (3.5-5.1) mmol/L Chloride (98-107) mmol/L Carbon Dioxide (22-30) mmol/L Anion Gap mmol/L BUN (7-17) mg/dL Creatinine (0.52-1.04) mg/dL Est GFR (CKD-EPI)AfAm (>60 ml/min/1.73 sqM) Est GFR (CKD-EPI)NonAf (>60 ml/min/1.73 sqM) Glucose (74-99) mg/dL Lactic Ac Sepsis Rflx Y Plasma Lactic Acid Jered 2.4 H* (0.7-2.0) mmol/L Calcium (8.4-10.2) mg/dL Total Bilirubin (0.2-1.3) mg/dL AST (14-36) U/L ALT (4-34) U/L Alkaline Phosphatase (38-126) U/L Troponin I (0.000-0.034) ng/mL Total Protein (6.3-8.2) g/dL Albumin (3.5-5.0) g/dL Lipase (23-300) U/L Urine Color Urine Appearance (Clear) Urine pH (5.0-8.0) Ur Specific [place] (1.001-1.035) Urine Protein (Negative) Urine Glucose (UA) (Negative) Urine Ketones (Negative) Urine Blood (Negative) Urine Nitrite (Negative) Urine Bilirubin (Negative) Urine Urobilinogen (<2.0) mg/dL Ur Leukocyte Esterase (Negative) Urine RBC (0-5) /hpf Urine WBC (0-5) /hpf Ur Squamous Epith Cells (0-4) /hpf Hyaline Casts (0-2) /lpf Urine Mucus (None) /hpf Coronavirus (PCR) Not Detected (Not Detectd) 08/06/21 Range/Units 20:45 WBC (3.8-10.6) k/uL RBC (3.80-5.40) m/uL Hgb (11.4-16.0) gm/dL Hct (34.0-46.0) % MCV (80.0-100.0) fL MCH (25.0-35.0) pg MCHC (31.0-37.0) g/dL RDW (11.5-15.5) % Plt Count (150-450) k/uL MPV Neutrophils % % Lymphocytes % % Monocytes % % Eosinophils % % Basophils % % Neutrophils # (1.3-7.7) k/uL Lymphocytes # (1.0-4.8) k/uL Monocytes # (0-1.0) k/uL Eosinophils # (0-0.7) k/uL Basophils # (0-0.2) k/uL Sodium (137-145) mmol/L Potassium (3.5-5.1) mmol/L Chloride (98-107) mmol/L Carbon Dioxide (22-30) mmol/L Anion Gap mmol/L BUN (7-17) mg/dL Creatinine (0.52-1.04) mg/dL Est GFR (CKD-EPI)AfAm (>60 ml/min/1.73 sqM) Est GFR (CKD-EPI)NonAf (>60 ml/min/1.73 sqM) Glucose (74-99) mg/dL Lactic Ac Sepsis Rflx Plasma Lactic Acid Jered (0.7-2.0) mmol/L Calcium (8.4-10.2) mg/dL Total Bilirubin (0.2-1.3) mg/dL AST (14-36) U/L ALT (4-34) U/L Alkaline Phosphatase (38-126) U/L Troponin I (0.000-0.034) ng/mL Total Protein (6.3-8.2) g/dL Albumin (3.5-5.0) g/dL Lipase (23-300) U/L Urine Color Yellow Urine Appearance Clear (Clear) Urine pH 5.5 (5.0-8.0) Ur Specific [place] >1.050 H (1.001-1.035) Urine Protein Trace H (Negative) Urine Glucose (UA) Negative (Negative) Urine Ketones Negative (Negative) Urine Blood Trace H (Negative) Urine Nitrite Negative (Negative) Urine Bilirubin Negative (Negative) Urine Urobilinogen <2.0 (<2.0) mg/dL Ur Leukocyte Esterase Negative (Negative) Urine RBC 1 (0-5) /hpf Urine WBC 1 (0-5) /hpf Ur Squamous Epith Cells 1 (0-4) /hpf Hyaline Casts 1 (0-2) /lpf Urine Mucus Rare H (None) /hpf Coronavirus (PCR) (Not Detectd) Disposition Clinical Impression: Dehydration, Vomiting, Acute kidney injury Disposition: ADMITTED IP TO THIS [facility] Condition: Serious Decision to Admit Reason: Admit from EC Decision Date: 08/06/21 Decision Time: 21:20
[2021-08-06 18:17] LABS: Albumin 5.3 g/dL (3.5-5.0); Calcium 10.4 mg/dL (8.4-10.2); Potassium 4.7 mmol/L (3.5-5.1); Total Bilirubin 1.4 mg/dL (0.2-1.3); Total Protein 8.9 g/dL (6.3-8.2)
[2021-08-06 18:18] LABS: Basophils # (A) 0.1 k/uL (0-0.2); Basophils % (A) 1 %; Eosinophils # (A) 0.1 k/uL (0-0.7); Eosinophils % (A) 1 %; HGB 16.9 gm/dL (11.4-16.0); Lymphocytes # (A) 0.2 k/uL (1.0-4.8); Lymphocytes % (A) 2 %; MCH 30.5 pg (25.0-35.0); MCHC 33.1 g/dL (31.0-37.0); MCV 92.2 fL (80.0-100.0); Mean Platelet Volume 7.9; Monocytes # (A) 0.5 k/uL (0-1.0); Monocytes % (A) 4 %; Neutrophils # (A) 11.5 k/uL (1.3-7.7); Neutrophils % (A) 93 %; Platelet Count 252 k/uL (150-450); RBC 5.53 m/uL (3.80-5.40); RDW 13.7 % (11.5-15.5); WBC 12.4 k/uL (3.8-10.6)
--- NOTE | 2021-08-06 19:22 | CT ---
EXAMINATION TYPE: CT abdomen pelvis w con DATE OF EXAM: 08/06/2021 COMPARISON: None HISTORY: abdominal pain with N/V/D CT DLP: 1009.7 mGycm Automated exposure control for dose reduction was used. CONTRAST: Performed with IV Contrast, patient injected with 80cc mL of Isovue 300. Images obtained from the diaphragm to the floor the pelvis with IV contrast. Lung bases are clear. There is no pleural effusion. Heart size is normal. There is no pericardial eff usion. Liver spleen stomach pancreas appear intact. Bile ducts are nondilated. There are clips from c holecystectomy. There is no adrenal mass. Kidneys show satisfactory contrast opacification. There is no hydronephrosi s. Ureters are not dilated. There is device implanted over the posterior right side lower abdomen. Th ere is no retroperitoneal adenopathy. The bladder distends smoothly. There is no inguinal hernia. The re is no free fluid in the pelvis. There are small calcified uterine fibroids. Uterus is retroverted. There is no pelvic mass. There is no free fluid in the pelvis. There is previous surgery at the [facility] colon. Delayed images show normal renal excretion. The lumbar vertebral abnormal alignment. There is no compression fracture. Bony pelvis is intact. The hip joints are intact. There is no mesenteric edema. There is no ascites or free air. There is no sign of a bowel obstructio n. IMPRESSION: Negative CT scan of the abdomen pelvis. Previous right colon surgery.
[2021-08-06] MEDS ORDERED: SODIUM CHLORIDE 0.9% 1,000 ML IV ONE (19:46)
[2021-08-06 21:06] LABS: Appearance,Urine Clear (Clear); Bilirubin,Urine Negative (Negative); Blood,Urine Trace (Negative); Color,Urine Yellow; Glucose,Urine (UA) Negative (Negative); Hyaline Casts,Urine 1 /lpf (0-2); Ketones,Urine Negative (Negative); Leukocyte Esterase,Urine Negative (Negative); Mucus,Urine Rare /hpf; Nitrite,Urine Negative (Negative); PH, Urine 5.5 (5.0-8.0); Protein,Urine Trace (Negative); RBC,Urine 1 /hpf (0-5); Squamous Epithelial Cell,Urine 1 /hpf (0-4); Urobilinogen,Urine <2.0 mg/dL (<2.0); WBC,Urine 1 /hpf (0-5)
[2021-08-06 21:11] LABS: Specific Gravity,Urine >1.050 (1.001-1.035)
[2021-08-06] MEDS ORDERED: ONDANSETRON 4 MG/2 ML VIAL IVP PRN (21:21)
[2021-08-06] MEDS ORDERED: NALOXONE 0.4 MG/ML 1 ML VIAL IV PRN (21:21)
[2021-08-06] MEDS: SODIUM CHLORIDE 0.9% 1,000 ML IV SCH (21:54)
[2021-08-07] MEDS ORDERED: ALBUTEROL NEBULIZED 2.5 MG/3 ML INHALATION PRN (01:57)
--- NOTE | 2021-08-07 01:58 | P.HPIM ---
History of Present Illness H&P Date: 08/06/21 The patient is a 66-year-old female with a PMH of hypertension, hyperkalemia, coronary artery disease status post [place], COPD who presented to the emergency room with complaints of nausea, vomiting, and diarrhea. The patient reports that her symptoms started suddenly 24 hours ago and have persisted. She reports tubing episodes of vomiting to count with bilateral but denied noticing any blood. She also denied hematochezia or melena. She reports that due to her vomiting, she has been unable to keep down any solids or liquids and thereby feels dehydrated and dizzy and has fallen multiple times at home. She denied focal weakness, numbness, tingling. Denied fever, chills, chest pain, shortness of cough. The patient reports feeling significantly better following her admission. CT abdomen pelvis was unremarkable in the emergency room. EKG revealed sinus tachycardia at 110 bpm. Laboratory evaluation is remarkable for leukocytosis of 12.4, BUN 26, creatinine 1.18, lactic acid 2.4. Review of systems: Pertinent positives and negatives as discussed in HPI, a complete review of systems was performed and all other systems are negative. Physical examination: General: non toxic, no distress, appears at stated age, normal weight Derm: no unusual rashes/lesions no unusual ecchymoses, warm, dry Head: atraumatic, normocephalic, symmetric Eyes: EOMI, no lid lag, anicteric sclera, pupils equal round reactive to light ENT: Nose and ears atraumatic, no thrush, no pharyngeal erythema Neck: No thyromegaly, no cervical lymphadenopathy, trachea midline, supple Mouth: no lip lesion, mucus membranes dry Cardiovascular: S1S2 reg, no murmur, positive posterior tibial pulse bilateral, no edema, capillary refill less than 2 seconds Lungs: CTA bilateral, no rhonchi, no rales , no accessory muscle use Abdominal: soft, nontender to palpation, no guarding, no appreciable organomegaly, normal bowel sounds Ext: no gross muscle atrophy, muscle strength 5 out of 5 in all 4 extremities grossly, no contractures, Neuro: CN II-XI grossly intact, light touch intact all 4 extremities, finger to nose within normal limits, Psych: Alert, oriented, appropriate affect Assessment/plan Intractable nausea, vomiting, diarrhea -Antiemetics -IV fluids -Nothing by mouth Acute kidney injury, likely secondary to dehydration from nausea and vomiting -IV fluids Lactic acidosis -IV fluids -Monitor for resolution Leukocytosis -Likely due to dehydration -No signs of active infection at this time -Monitor for now Chronic conditions: Hypertension, HLD coronary artery disease, COPD -Continue with home meds DVT prophylaxis -Heparin subq The patient is admitted with an anticipated less than 2 midnight stay for evaluation of nausea, vomiting CODE STATUS:Full Code Discussed with: Patient Anticipated discharge date: in am Anticipated discharge place: Home Past Medical History Past Medical History: Chest Pain / Angina, Hyperlipidemia, Hypertension, Myocardial Infarction ([place]) Additional Past Medical History / Comment(s): RSD, RAYNAUDS, restless leg syndrome Last Myocardial Infarction Date:: 08/2012 History of Any Multi-Drug Resistant Organisms: None Reported Past Surgical History: Appendectomy, Bowel Resection, Breast Surgery, Cholecystectomy, Heart Catheterization With Stent, Orthopedic Surgery, Tonsillectomy, Tubal Ligation Additional Past Surgical History / Comment(s): spinal stimulator Past Anesthesia/Blood Transfusion Reactions: No Reported Reaction Date of Last Stent Placement:: 08/2012 Past Psychological History: No Psychological Hx Reported Smoking Status: Former smoker Past Alcohol Use History: Rare Past Drug Use History: None Reported - Past Family History Mother Family Medical History: Myocardial Infarction ([place]) Father Family Medical History: Myocardial Infarction ([place]) Sister(s) Family Medical History: Myocardial Infarction ([place]) Additional Family Medical History / Comment(s): sister from [place] Medications and Allergies Home Medications Medication Instructions Recorded Confirmed Type Amitriptyline HCl [Elavil] 50 mg PO HS 05/10/14 08/06/21 History Gabapentin [Neurontin] 300 mg PO TID 05/10/14 08/06/21 History Ergocalciferol [Vitamin D2] 50,000 unit PO FR 09/17/15 08/06/21 History Montelukast [Singulair] 10 mg PO HS 09/17/15 08/06/21 History Omeprazole 20 mg PO DAILY 12/19/15 08/06/21 History Diazepam [Valium] 5 mg PO DAILY PRN 11/18/20 08/06/21 History Albuterol Inhaler [Ventolin Hfa 2 puff INHALATION RT-Q6H PRN 08/06/21 08/06/21 History Inhaler] Budesonide/Glycopyr/Formoterol 1 puff INHALATION RT-DAILY 08/06/21 08/06/21 History [Breztri Aerosphere Inhaler] Dicyclomine HCl 10 mg PO ACHS 08/06/21 08/06/21 History Fluticasone/Vilanterol [Breo 1 puff INHALATION RT-DAILY 08/06/21 08/06/21 History Ellipta 200-25 Mcg Inhaler] Hydrochlorothiazide 12.5mg Tab 12.5 mg PO DAILY 08/06/21 08/06/21 History Lisinopril-Hctz 20-25 mg 1 tab PO DAILY 08/06/21 08/06/21 History [Zestoretic 20-25] Metoprolol Succinate [Toprol XL] 200 mg PO DAILY 08/06/21 08/06/21 History Topiramate [Topamax] 50 mg PO BID 08/06/21 08/06/21 History amLODIPine [Norvasc] 5 mg PO DAILY 08/06/21 08/06/21 History Allergies Allergy/AdvReac Type Severity Reaction Status Date / Time propranolol HCl Allergy Rash/Hives Verified 08/06/21 17:19 [From Inderal LA] Physical Exam Vitals: Vital Signs Temp Pulse Resp BP Pulse Ox 08/06/21 20:30 97 20 129/71 100 08/06/21 20:00 99 20 129/72 96 08/06/21 19:30 96 20 123/69 96 08/06/21 19:00 101 H 20 120/68 96 08/06/21 17:16 98.4 F 111 H 18 87/61 98 Intake and Output 08/06/21 08/06/21 08/07/21 14:59 22:59 06:59 Other: Weight 68.039 kg Results CBC & Chem 7: 08/06/21 18:00 08/06/21 18:00 Labs: Abnormal Lab Results - Last 24 Hours (Table) 08/06/21 08/06/21 08/06/21 Range/Units 18:00 18:00 18:00 WBC 12.4 H (3.8-10.6) k/uL RBC 5.53 H (3.80-5.40) m/uL Hgb 16.9 H (11.4-16.0) gm/dL Hct 51.0 H (34.0-46.0) % Neutrophils # 11.5 H (1.3-7.7) k/uL Lymphocytes # 0.2 L (1.0-4.8) k/uL Carbon Dioxide 19 L (22-30) mmol/L BUN 26 H (7-17) mg/dL Creatinine 1.18 H (0.52-1.04) mg/dL Glucose 150 H (74-99) mg/dL Plasma Lactic Acid Jered 2.4 H* (0.7-2.0) mmol/L Calcium 10.4 H (8.4-10.2) mg/dL Total Bilirubin 1.4 H (0.2-1.3) mg/dL ALT 42 H (4-34) U/L Total Protein 8.9 H (6.3-8.2) g/dL Albumin 5.3 H (3.5-5.0) g/dL Lipase 22 L (23-300) U/L Ur Specific [place] (1.001-1.035) Urine Protein (Negative) Urine Blood (Negative) Urine Mucus (None) /hpf 08/06/21 Range/Units 20:45 WBC (3.8-10.6) k/uL RBC (3.80-5.40) m/uL Hgb (11.4-16.0) gm/dL Hct (34.0-46.0) % Neutrophils # (1.3-7.7) k/uL Lymphocytes # (1.0-4.8) k/uL Carbon Dioxide (22-30) mmol/L BUN (7-17) mg/dL Creatinine (0.52-1.04) mg/dL Glucose (74-99) mg/dL Plasma Lactic Acid Jered (0.7-2.0) mmol/L Calcium (8.4-10.2) mg/dL Total Bilirubin (0.2-1.3) mg/dL ALT (4-34) U/L Total Protein (6.3-8.2) g/dL Albumin (3.5-5.0) g/dL Lipase (23-300) U/L Ur Specific [place] >1.050 H (1.001-1.035) Urine Protein Trace H (Negative) Urine Blood Trace H (Negative) Urine Mucus Rare H (None) /hpf
[2021-08-07 03:35] VITALS: RESP 18
[2021-08-07] MEDS ORDERED: PANTOPRAZOLE 40 MG TABLET PO SCH (07:30)
[2021-08-07] MEDS: IPRATROPIUM 0.5 MG/2.5 ML NEBU INHALATION SCH ×2 (07:45→11:30)
[2021-08-07] MEDS ORDERED: FORMOTEROL FUMARATE 20 MCG/2 ML NEBU INHALATION SCH (08:00)
[2021-08-07] MEDS ORDERED: BUDESONIDE 1 MG/2 ML NEBU INHALATION SCH (08:00)
[2021-08-07] MEDS ORDERED: SYMBICORT 160-4.5 MCG INHALER INHALATION SCH (08:00)
[2021-08-07] MEDS: DICYCLOMINE 10 MG CAP PO SCH ×2 (09:00→12:12)
[2021-08-07] MEDS ORDERED: TOPIRAMATE 25 MG TAB PO SCH (09:00)
[2021-08-07] MEDS ORDERED: METOPROLOL SUCCINATE (ER) 100 MG TAB.ER.24H PO SCH (09:00)
[2021-08-07] MEDS ORDERED: GABAPENTIN 300 MG CAP PO SCH (09:00)
[2021-08-07] MEDS ORDERED: FAMOTIDINE 20 MG/2 ML VIAL IV SCH (09:00)
[2021-08-07] MEDS ORDERED: amLODIPine 5 MG TAB PO SCH (09:00)
[2021-08-07 10:13] LABS: HCT 39.8 % (37.2-46.3); HGB 12.6 g/dL (12.0-15.0); MCH 29.4 pg (27.0-32.0); MCHC 31.7 g/dL (32.0-37.0); MCV 92.8 fL (80.0-97.0); Mean Platelet Volume 10.6 fL (9.5-12.2); Platelet Count 201 X 10*3/uL (140-440); RBC 4.29 X 10*6/uL (4.10-5.20); RDW 14.1 % (11.5-14.5); WBC 5.95 X 10*3/uL (4.50-10.00)
[2021-08-07 10:26] LABS: African American GFR (CKD) 106.1 (60.0-200.0); Anion Gap 9.7 mmol/L (10.00-18.00); BUN/Creat Ratio 20.86 Ratio (12.00-20.00); Blood Urea Nitrogen 14.6 mg/dL (9.0-27.0); Calcium 8.7 mg/dL (8.7-10.3); Carbon Dioxide 20.3 mmol/L (20.0-27.5); Non-African American GFR(CKD) 91.6 (60.0-200.0)
[2021-08-07] MEDS: SODIUM CHLORIDE 0.9% 1,000 ML IV SCH (12:13)
[2021-08-07 14:50] VITALS: BP 109/76; PULSE 75; TEMP 98
--- NOTE | 2021-08-07 15:34 | P.DS ---
Providers Date of admission: 08/06/21 21:14 Expected date of discharge: 08/07/21 Attending physician: Carmen Cruz MD Primary care physician: Moises Jackie [facility] Course: Discharge Diagnosis: Gastroentritis Acute kidney injury Lactic acidosis Hypercalcemia, due to dehydration HTN HLD [facility] Course: Patient is a 66 yo CF with a hx of who presetned with vomiting and diarreha. In the emergency department she underwent an extensive evaluation. Which showed an elevated white blood cell count, dehydration, and lactic acidosis. She was started on IV fluids. She underwent a CT abdomen and pelvis which showed no signs of acute process. She was admitted and placed on IV fluids. By the morning after admission she felt much improved. She was able to tolerate a bland diet. She was determined stable for discharge home. She was noted to have low normal blood pressures and her lisinopril hydrochlorothiazide and Norvasc had been held. She was told to take her blood pressure once daily at home and then resume her Norvasc once her systolic blood pressure is greater than 120. She will also continue to hold her lisinopril hydrochlorothiazide un til seen by her primary care physician. She will increase her fluid intake over the next 2 days and continue with her diet. She will increase her diet from there. Patient seen and examined at bedside. Nausea, vomiting, and diarrhea resolved. Tolerating clear liquids. His upper tired in toast and light foods. Vital signs reviewed and stable. General: non toxic, no distress, appears at stated age Derm: warm, dry Head: atraumatic, normocephalic, symmetric Eyes: EOMI, no lid lag, anicteric sclera Mouth: no lip lesion, mucus membranes dry Cardiovascular: S1S2 reg, no murmur, positive posterior tibial pulse bilateral, Lungs: CTA bilateral, no rhonchi, no rales , no accessory muscle use Abdominal: soft, tender to palpation diffusely, states it feels like muscle spasms, no guarding, no appreciable organomegaly Ext: no gross muscle atrophy, no edema, no contractures Neuro: CN II-XI grossly intact, no focal neuro deficits Psych: Alert, oriented, appropriate affect A total of 27 minutes of time were spent preparing this complex discharge summary . Patient Condition at Discharge: Stable Plan - Discharge Summary Discharge Rx Participant: No New Discharge Prescriptions: New Dicyclomine [Bentyl] 10 mg PO ACHS cap Continue Amitriptyline HCl [Elavil] 50 mg PO HS Gabapentin [Neurontin] 300 mg PO TID Montelukast [Singulair] 10 mg PO HS Ergocalciferol [Vitamin D2 (DRISDOL)] 50,000 unit PO FR Omeprazole 20 mg PO DAILY Albuterol Inhaler [Ventolin Hfa Inhaler] 2 puff INHALATION RT-Q6H PRN PRN Reason: Shortness Of Breath Diazepam [Valium] 5 mg PO DAILY PRN PRN Reason: Anxiety Topiramate [Topamax] 50 mg PO BID Metoprolol Succinate [Toprol XL] 200 mg PO DAILY Lisinopril-Hctz 20-25 mg [Zestoretic 20-25] 1 tab PO DAILY Budesonide/Glycopyr/Formoterol [Breztri Aerosphere Inhaler] 2 puff INHALATION RT-BID amLODIPine [Norvasc] 5 mg PO DAILY Discontinued Dicyclomine HCl 10 mg PO ACHS Hydrochlorothiazide 12.5mg Tab 12.5 mg PO DAILY Discharge Medication List Amitriptyline HCl [Elavil] 50 mg PO HS 05/10/14 [History] Gabapentin [Neurontin] 300 mg PO TID 05/10/14 [History] Ergocalciferol [Vitamin D2 (DRISDOL)] 50,000 unit PO FR 09/17/15 [History] Montelukast [Singulair] 10 mg PO HS 09/17/15 [History] Omeprazole 20 mg PO DAILY 12/19/15 [History] Diazepam [Valium] 5 mg PO DAILY PRN 11/18/20 [History] Albuterol Inhaler [Ventolin Hfa Inhaler] 2 puff INHALATION RT-Q6H PRN 08/06/21 [History] Budesonide/Glycopyr/Formoterol [Breztri Aerosphere Inhaler] 2 puff INHALATION RT-BID 08/06/21 [History] Lisinopril-Hctz 20-25 mg [Zestoretic 20-25] 1 tab PO DAILY 08/06/21 [History] Metoprolol Succinate [Toprol XL] 200 mg PO DAILY 08/06/21 [History] Topiramate [Topamax] 50 mg PO BID 08/06/21 [History] amLODIPine [Norvasc] 5 mg PO DAILY 08/06/21 [History] Dicyclomine [Bentyl] 10 mg PO ACHS cap 08/07/21 [Rx] Follow up Appointment(s)/Referral(s): Moises Mejia DO [Primary Care Provider] - 1-2 days Patient Instructions/Handouts: Gastroenteritis (DC) Activity/Diet/Wound Care/Special Instructions: Activity: as tolerated Diet: [place] diet X 2 days then resume heart healthy diet Special Instructions: Hold your Amlodipine/Norvasc until your morning blood pressure is greater than 120/75 Hold your zestoretic/ Lisinopril-HCTZ until seen by your primary doctor Discharge Disposition: HOME SELF-CARE
[2021-08-07] MEDS ORDERED: MONTELUKAST 10 MG TAB PO SCH (21:00)
[2021-08-07] MEDS ORDERED: AMITRIPTYLINE HCL 50 MG TAB PO SCH (21:00)
== END 2021-08-07 16:25 | disposition home or self-care (01) ==
LOC: EC 17:02 → 6NMEDSUR 21:14
PROVIDERS: ADMIT Internal Medicine; ATTEND Internal Medicine
DX: K52.9 Noninfective gastroenteritis and colitis, unspecified (principal); N17.9 Acute kidney failure, unspecified; E86.0 Dehydration; I10 Essential (primary) hypertension; E78.5 Hyperlipidemia, unspecified; I25.10 Atherosclerotic heart disease of native coronary artery without angina pectoris; I73.00 Raynaud's syndrome without gangrene; G90.50 Complex regional pain syndrome I, unspecified; G25.81 Restless legs syndrome; J44.9 Chronic obstructive pulmonary disease, unspecified; E87.2 Acidosis; E87.5 Hyperkalemia; E83.52 Hypercalcemia; D72.829 Elevated white blood cell count, unspecified; R29.6 Repeated falls; I25.2 Old myocardial infarction; Z20.822 Contact with and (suspected) exposure to COVID-19; Z90.49 Acquired absence of other specified parts of digestive tract; Z79.899 Other long term (current) drug therapy; Z79.51 Long term (current) use of inhaled steroids; Z88.8 Allergy status to other drugs, medicaments and biological substances; Z87.891 Personal history of nicotine dependence; Z95.5 Presence of coronary angioplasty implant and graft; Z71.3 Dietary counseling and surveillance; Z82.49 Family history of ischemic heart disease and other diseases of the circulatory system
CPT/HCPCS: 96376; 96361; 96374; 96375; 99285; 36415; 94640; 93005; 80053; 80048; 83605 ×2; 83690; 84484; 85025; 85027; 81001; 87635; 74177; G0378 ×2; J2405; Q9967

== ENCOUNTER → 2023-11-15 | Outpatient (CLI) | payer MEDICARE ==
--- NOTE | 2023-11-15 08:19 | MM ---
Reason for Exam: Clinical finding. Last mammogram was performed 3 year(s) and 0 month(s) ago. Indicated Problems: Lump or thickening of the left side for 6 Month(s). Patient History: Menarche at age 15. First Full-Term at age 21. Postmenopausal. Patient has history of breast feeding. Other cancer, age 57. Hormonal Contraceptives for 1 year from age 21 until age 22. Benign Excisional Biopsy on the right side. 11/30/2020, US discontinued breast bx RT on the right side. Paternal grandmother had breast cancer, age 56. Risk Values: Gerri 5 year model risk: 1.4%. NCI Lifetime model risk: 5.2%. Prior Study Comparison: 04/08/2013 Bilateral Screening Mammogram, [facility]. 07/19/2016 Bilateral Diagnostic Mammogram, [facility] 07/19/2016 Right Diagnostic Ultrasound, [facility]. 11/15/2020 Bilateral Diagnostic Mammogram, [facility] 11/15/2020 Bilateral Diagnostic Ultrasound, [facility]. 02/13/2021 Left Diagnostic Ultrasound, [facility]. Tissue Density: The breasts are heterogeneously dense, which may obscure small masses. Findings: Analyzed By CAD. A couple surgical clips in the right axilla related to prior excision. Bilateral areas of asymmetric density are unchanged. A palpable marker is placed along the left axilla. Asymmetric density superior left MLO view middle depth remains unchanged. No significant change from prior exams. Overall Assessment: Incomplete: need additional imaging evaluation, BI-RAD 0 Management: Diagnostic Breast Ultrasound of both breasts. Left axilla, palpable site. Electronically signed and approved by: Roshan Bach M.D. Radiologist
--- NOTE | 2023-11-15 08:21 | USB ---
Reason for Exam: Clinical finding. Patient History: Menarche at age 15. First Full-Term at age 21. Postmenopausal. Patient has history of breast feeding. Other cancer, age 57. Hormonal Contraceptives for 1 year from age 21 until age 22. Benign Excisional Biopsy on the right side. 11/30/2020, US discontinued breast bx RT on the right side. Paternal grandmother had breast cancer, age 56. Risk Values: Gerri 5 year model risk: 1.4%. NCI Lifetime model risk: 5.2%. Technique: Method: Targeted. Prior Study Comparison: 04/08/2013 Bilateral Screening Mammogram, [facility]. 07/19/2016 Bilateral Diagnostic Mammogram, [facility]. 11/15/2020 Bilateral Diagnostic Mammogram, [facility]. 02/13/2021 Left Diagnostic Ultrasound, [facility]. Findings: The axilla of the left breast and the retroareolar of the left breast were scanned. At the patient's axillary palpable site, there is a prominent lymph node measuring 2.3 x 1.4 x 1.1 cm. This shows uniform cortex measuring up to 1.4 mm and fatty hilum. A prominent but benign lymph node is suggested. Precautionary three-month follow-up can be performed. No other solid or cystic lesion. Overall Assessment: Probably benign, BI-RAD 3 Management: Diagnostic Breast Ultrasound of the left breast in 3 months. A clinical breast exam by your physician is recommended on an annual basis and results should be correlated with mammographic findings. This exam should not preclude additional follow-up of suspicious palpable abnormalities. Results were given to the patient verbally at the time of exam. Electronically signed and approved by: Roshan Bach M.D. Radiologist
== END | disposition home or self-care (01) ==
LOC: RADMAMWWP 07:20
PROVIDERS: ATTEND Family Medicine
DX: R92.333 Mammographic heterogeneous density, bilateral breasts (principal); Z78.0 Asymptomatic menopausal state; Z80.3 Family history of malignant neoplasm of breast
CPT/HCPCS: 77066; 76642; G0279; 77062

== ENCOUNTER → 2024-05-28 | Outpatient (CLI) | payer MEDICARE ==
--- NOTE | 2024-05-28 09:57 | USB ---
Reason for Exam: Follow-up at short interval from prior study. Patient History: Menarche at age 15. First Full-Term at age 21. Postmenopausal. Patient has history of breast feeding. Other cancer, age 57. Hormonal Contraceptives for 1 year from age 21 until age 22. Benign Excisional Biopsy on the right side. 11/30/2020, US discontinued breast bx RT on the right side. Paternal grandmother had breast cancer, age 56. Risk Values: Gerri 5 year model risk: 1.4%. NCI Lifetime model risk: 5.0%. Technique: Method: Targeted. Prior Study Comparison: 07/19/2016 Bilateral Diagnostic Mammogram, [facility]. 11/15/2020 Bilateral Diagnostic Mammogram, [facility]. 11/15/2023 Bilateral MG 3D diag mammo w/cad PRITI, [facility]. Findings: The axilla of the left breast was scanned. Mildly prominent lymph node is redemonstrated however smaller in size and currently measures follow-up at annual screening in November 2024 is recommended.. Overall Assessment: Probably benign, BI-RAD 3 Management: Diagnostic Breast Ultrasound of the left breast in 6 months. A clinical breast exam by your physician is recommended on an annual basis and results should be correlated with mammographic findings. This exam should not preclude additional follow-up of suspicious palpable abnormalities. Results were given to the patient verbally at the time of exam. [facility], , 05/28/2024 9:54 AM. Electronically signed and approved by: Aaron Armijo M.D. Radiologis
== END | disposition home or self-care (01) ==
LOC: RADUSWWP 09:30
PROVIDERS: ATTEND Family Medicine
DX: N63.0 Unspecified lump in unspecified breast (principal); Z78.0 Asymptomatic menopausal state; Z80.3 Family history of malignant neoplasm of breast